=== PATIENT | female | born 1990 | race Caucasian/White ===

== ENCOUNTER 2021-01-23 12:50 | Emergency (ER) | payer OTHER ==
[~2021-01-23] VITALS: Ht 165.1 cm; Wt 64.0 kg
--- NOTE | 2021-01-23 14:13 | NUR ---
WORKDAY DIRECTOR: PT TO ROOM FROM LOBBY
--- NOTE | 2021-01-23 14:24 | NUR ---
PT CAME IN [place]. 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 PT REPORTS HE LOWER BACK ON THE LEFT SIDE HAS BEEN GETTING TIGHT AND SHE A SHOOTING PAIN DOWN HER LEG
--- NOTE | 2021-01-23 14:35 | NUR ---
assumed care of pt. pt here for low back pain raidting to L leg. pt reports that she has numbness to L foot. CMS intact. 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 reports that she is having duifficulty walking and recievied no relief or hong meds after going to pt is tearful and unable to find a comfortable position. no family at bedside Dr. Kincaid at bedside for eval pt positioning and warm blankets for comfort
--- NOTE | 2021-01-23 14:50 | NUR ---
pt to be medicated for pain. pt advised not to drive after pain meds. pt reports that she can have her boyfriend pick her up after D/C
[2021-01-23] MEDS ORDERED: CARISOPRODOL 350 MG TABLET ONE (14:56)
[2021-01-23] MEDS ORDERED: KETOROLAC 30 MG/1 ML ONE (14:57)
[2021-01-23] MEDS ORDERED: HYDROmorphone 2 MG/ML, 1ML ONE (14:57)
[2021-01-23] MEDS ORDERED: ONDANSETRON 2MG/ML, 2ML ONE (14:57)
[2021-01-23] MEDS ORDERED: KETOROLAC 30 MG/1 ML IVPush ONE (15:00)
[2021-01-23] MEDS ORDERED: SODIUM CHLORIDE FLUSH 10ML SYR IVF ONE (15:00)
[2021-01-23] MEDS ORDERED: HYDROmorphone 1 MG/ML, 1ML INJ IV ONE (15:00)
[2021-01-23] MEDS ORDERED: ONDANSETRON 2MG/ML, 2ML IVPush ONE (15:00)
[2021-01-23] MEDS ORDERED: CARISOPRODOL 350 MG TABLET PO ONE (15:00)
[2021-01-23 15:22] LABS: MICROSCOPIC NOT IND
--- NOTE | 2021-01-23 15:25 | NUR ---
pt reports complete relief of pain after meds. chart up for MD recheck
--- NOTE | 2021-01-23 16:02 | NUR ---
awaiting recheck report to Faustino BOJORQUEZ for lunch
--- NOTE | 2021-01-23 17:12 | NUR ---
Dr. Kincaid at bedside for recheck
[2021-01-23 18:07] VITALS: BP 120/70
== END 2021-01-23 18:11 | disposition home or self-care (01) ==
LOC: ED 16:19
DX: M54.42 Lumbago with sciatica, left side (principal)
CPT/HCPCS: 81003; 96374; 96375; 99285; J1170; J1885; J2405; J7512